=== PATIENT | female | born 1965 | race Caucasian/White ===

== ENCOUNTER 2020-04-03 13:30 | Inpatient (IN) | payer BC ==
--- NOTE | 2020-04-03 13:37 | ED.PDOC ---
History of Present Illness - General Time Seen by Provider: 04/03/20 13:35 Source: patient - History of Present Illness Initial Comments: 54-year-old female with urinate who presents with chief complaint of shortness of breath. Patient reports she was diagnosed with COVID-19 8 days ago in the clinic. She reports her shortness of breath has worsened in the past couple of days. Currently she reports dyspnea as 5/10 severity at rest but becomes severe with minimal exertion and ambulation around the house. She states after walking short distances she has to stop and rest for several minutes to catch her breath. Her PCP is Dr. Chapa in [place]. She was prescribed a Z-Timo several days ago and has been taking it. She was also prescribed ivermectin which she took yesterday. She reports little relief with these therapies. Additionally reports intermittent headaches, intermittent dry cough, decreased appetite. Denies chest pain, fevers, chills, abdominal pain, sore throat, nausea/vomiting/diarrhea, leg swelling. Her is also sick with COVID-19. Denies any history of smoking or cardiac/lung issues. Allergies/Adverse Reactions: Allergies Penicillins Allergy (Verified 04/03/20 13:43) Sulfa Antibiotics Allergy (Verified 04/03/20 13:43) Home Medications: Ambulatory Orders Citalopram Hydrobromide [Citalopram] 20 mg PO DAILY 04/03/20 Estradiol 0.075 mg TD DAILY 04/03/20 Fluticasone Propionate (Nasal) [Flonase Allergy Relief] 50 mcg NA PRN 04/03/20 Furosemide [Lasix] 20 mg PO DAILY 04/03/20 HYDROcodone 10MG/APAP 325MG [[place] 10/325] 1 tab PO Q6H 04/03/20 Hydroxychloroquine Sulfate [Hydroxychloroquine Sulfat] 200 mg PO BID 04/03/20 Lisinopril 20 mg PO DAILY 04/03/20 Meloxicam 15 mg PO DAILY 04/03/20 Montelukast [Singulair] 10 mg PO DAILY 04/03/20 Omeprazole 40 mg PO DAILY 04/03/20 Spironolactone 25 mg PO DAILY 04/03/20 Review of Systems - Review of Systems Review of Systems: 04/03/20 14:30 as per HPI All other Systems: Reviewed and Negative Family Medical History - Family History Mother Family History: Unknown Living Status: Unknown Physical Exam - Physical Exam General Appearance: Alert, Comfortable, No apparent distress, Obese Eye Exam: bilateral normal Ears, Nose, Throat: hearing grossly normal, pharyngeal erythema Neck: full range of motion, supple, normal inspection Respiratory: rales - diffuse BL rales w/o wheezing, good air movement throughout, slightly inc'd WOB at rest but able to speak comfortably in full sentences Cardiovascular/Chest: normal peripheral pulses, no edema, no gallop, no JVD, no murmur, tachycardia Peripheral Pulses: radial,right: 2+, radial,left: 2+ Gastrointestinal/Abdominal: normal bowel sounds, non tender, soft, no organomegaly Back Exam: normal inspection Extremity: normal range of motion, non-tender, normal inspection, no pedal edema, no calf tenderness, normal capillary refill Neurologic: video production intern II-XII nml as tested, no motor/sensory deficits, alert, normal mood/affect, oriented x 3 Skin Exam: normal color, warm/dry Progress - Progress Progress: 04/03/20 14:32 Dyspnea -Appears secondary to COVID-19 pneumonia. Consider also pneumonia, CHF, ACS, PE, other viral infection, asthma, other -Patient noted to have SPO2 95% on room air with slight tachypnea upon arrival. Markedly worsens with minimal exertion. Mild tachycardia but blood pressure stable. -Obtain COVID-19 ED panel -Place PIV, 1 L normal saline bolus, Decadron 6 mg IV, trial of DuoNebs, reassess. Consider admission versus possible BAM treatment and close outpt f/u 04/03/20 16:18 -Patient reassessed numerous times while in the ED. She reported only slight improvement after the DuoNeb's and Decadron treatments. Repeat auscultation revealed slightly improved air movement throughout and still no wheezing. Patient noted to have significant exertional dyspnea and she does have oxygen desaturation to be low to mid 80s with minimal exertion, improves at rest back to 95% room air. Her ED work-up is consistent with COVID-19 pneumonia. Serum WBC is 10,000 with slight left shift and 5 bands. CRP is elevated to 35, D- dimer greater than 5000. CTA of the chest was obtained which revealed no evidence of PE but did reveal bilateral diffuse peripheral groundglass opacities consistent with COVID-19 pneumonia. -The patient was very concerned about going home. I discussed the patient with Jaz Cardozo who accepts for admission for COVID-19 pneumonia with exertional dyspnea and hypoxia. Given the bandemia, there is concern about potential bacterial infection and sepsis. We will draw blood cultures and lactate. Begin remdesivir 200 mg IV. Hospitalist to discern possible antibiotic therapy. Sorin Bray MD Billing #[id number] 04/03/20 13:36 Telemetry STAT 04/03/20 13:45 EKG STAT Oxygen STAT Pulse Ox, Continuous Monitoring STAT 04/03/20 16:16 LACTIC ACID Stat BLOOD CULTURE Stat 04/03/20 16:17 Remdesivir 200 mg Sodium Chloride 0.9% 250Ml [NS 250ml] 250 ml IVPB ONCE 04/04/20 13:45 Oxygen STAT Pulse Ox, Continuous Monitoring STAT 04/05/20 13:45 Pulse Ox, Continuous Monitoring STAT Laboratory Results - last 24 hr 04/03/20 04/03/20 04/03/20 13:55 13:55 13:55 WBC 10.0 RBC 4.62 Hgb 14.2 Hct 40.6 MCV 87.9 MCH 30.8 MCHC 35.1 RDW 13.3 Plt Count 547 H MPV 7.4 Absolute Neuts (auto) Not Reportable Absolute Lymphs (auto) Not Reportable Absolute Monos (auto) Not Reportable Absolute Eos (auto) Not Reportable Neutrophils % Not Reportable Neutrophils % (Manual) 76.0 Lymphocytes % Not Reportable Lymphocytes % (Manual) 8.0 Monocytes % Not Reportable Monocytes % (Manual) 10.0 Eosinophils % Not Reportable Basophils % Not Reportable Band Neutrophils 5.0 H Eosinophils 1.0 Platelet Estimate Increased Normal RBC Morphology 1+aniso PTT (SP) 36.6 H D-Dimer, Quantitative > 5000.0 H* Sodium 130 L Potassium 4.3 Chloride 92 L Carbon Dioxide 25 Anion Gap 17.3 BUN 18 Creatinine 0.88 BUN/Creatinine Ratio 20.5 H Random Glucose 103 Serum Osmolality 263.0 L Calcium 9.1 Magnesium 1.9 Total Bilirubin 0.6 AST 30 ALT 20 Alkaline Phosphatase 68 LD Total 259 H Creatine Kinase 33 Troponin I C-Reactive Protein 35.1 H* B-Natriuretic Peptide 242.0 H* Serum Total Protein 8.7 H Albumin 3.0 L Globulin 5.7 H Albumin/Globulin Ratio 0.5 L Urine Color Urine Appearance Urine pH Ur Specific [place] Urine Protein Urine Glucose (UA) Urine Ketones Urine Blood Urine Nitrite Urine Bilirubin Urine Urobilinogen Ur Leukocyte Esterase Urine RBC Urine WBC Ur Epithelial Cells Urine Bacteria 04/03/20 04/03/20 13:55 14:49 WBC RBC Hgb Hct MCV MCH MCHC RDW Plt Count MPV Absolute Neuts (auto) Absolute Lymphs (auto) Absolute Monos (auto) Absolute Eos (auto) Neutrophils % Neutrophils % (Manual) Lymphocytes % Lymphocytes % (Manual) Monocytes % Monocytes % (Manual) Eosinophils % Basophils % Band Neutrophils Eosinophils Platelet Estimate Normal RBC Morphology PTT (SP) D-Dimer, Quantitative Sodium Potassium Chloride Carbon Dioxide Anion Gap BUN Creatinine BUN/Creatinine Ratio Random Glucose Serum Osmolality Calcium Magnesium Total Bilirubin AST ALT Alkaline Phosphatase LD Total Creatine Kinase Troponin I < 0.02 C-Reactive Protein B-Natriuretic Peptide Serum Total Protein Albumin Globulin Albumin/Globulin Ratio Urine Color Yellow Urine Appearance Clear Urine pH 5.5 Ur Specific [place] >= 1.030 Urine Protein 100 H Urine Glucose (UA) Negative Urine Ketones Trace Urine Blood Negative Urine Nitrite Negative Urine Bilirubin Small H Urine Urobilinogen 1.0 Ur Leukocyte Esterase Negative Urine RBC 0 Urine WBC 0 Ur Epithelial Cells 0 Urine Bacteria 0 - EKG/XRAY/CT EKG: Sinus - Sinus tachycardia, heart rate 105, no ST elevations or Q waves noted, axis normal, intervals normal, no prior EKG for comparison. XRAY: chest - Bilateral hazy interstitial opacifications noted middle and lower lung banuelos consistent with COVID-19 pneumonia per my read Departure - Departure Clinical Impression: Pneumonia due to COVID-19 virus, Hypoxia Time of Disposition: 16:26 Disposition: Admit Patient Condition: Fair Diet: low salt diet Referrals: IESHA FONSECA [Referring] - 1-2 Weeks Home Medications: Ambulatory Orders Citalopram Hydrobromide [Citalopram] 20 mg PO DAILY 04/03/20 Estradiol 0.075 mg TD DAILY 04/03/20 Fluticasone Propionate (Nasal) [Flonase Allergy Relief] 50 mcg NA PRN 04/03/20 Furosemide [Lasix] 20 mg PO DAILY 04/03/20 HYDROcodone 10MG/APAP 325MG [[place] 10/325] 1 tab PO Q6H 04/03/20 Hydroxychloroquine Sulfate [Hydroxychloroquine Sulfat] 200 mg PO BID 04/03/20 Lisinopril 20 mg PO DAILY 04/03/20 Meloxicam 15 mg PO DAILY 04/03/20 Montelukast [Singulair] 10 mg PO DAILY 04/03/20 Omeprazole 40 mg PO DAILY 04/03/20 Spironolactone 25 mg PO DAILY 04/03/20 Decision To Admit - Decistion To Admit Decision to Admit Reason: Admit from ER Decision to Admit Date: 04/03/20 Decision to Admit Time: 16:26
--- NOTE | 2020-04-03 14:01 | RAD ---
EXAMINATION: Chest x-ray one view. INDICATION: Covid positive. Dyspnea. COMPARISON: None TECHNIQUE: Frontal radiograph chest. FINDINGS: The cardiac silhouette is normal in size. Bilateral mid and lower lung zone airspace opacities are present. There is no pneumothorax. IMPRESSION: Bilateral mid and lower lung zone airspace opacities are present which could relate to the provided history of Covid. Continued follow-up recommended Electronically signed by: Allyson Tipton MD 04/03/2020 1:59 PM [facility]
[2020-04-03] MEDS ORDERED: IPRATROPIUM/ALBUTEROL 3 ML VIAL NEB ONE (14:27)
[2020-04-03] MEDS ORDERED: SODIUM CHLORIDE 0.9% 1000ML 1,000 ML IVS ONE (14:27)
[2020-04-03] MEDS ORDERED: DEXAMETHASONE INJ 4 MG/ML VIAL IV ONE (14:27)
--- NOTE | 2020-04-03 16:05 | CT ---
PROCEDURE: CT Angiography Chest With Intravenous Contrast CLINICAL INDICATION: The patient is 54 years old and is Female; dyspnea, COVID-19+, markedly elevated d-dimer MAIN TECHNIQUE: Axial computed tomographic angiography images of the chest with intravenous contrast. Sagittal and coronal reformatted images were created and reviewed. This CT exam was performed using one or more of the following dose reduction techniques: automated exposure control, adjustment of the mA and/or kV according to patient size, and/or use of iterative reconstruction technique. MIP reconstructed images were created and reviewed. RADIATION DOSE: Total exam DLP is 791.7 mGycm. COMPARISON: No relevant prior studies available. FINDINGS: PULMONARY ARTERIES: There is NO evidence of pulmonary artery embolus. The bilateral third generation subsegmental pulmonary artery branches in the lower lobes are not diagnostically evaluated due to motion and infiltrates which obscures these petering vessels. The contrast bolus is well timed for this evaluation. AORTA: The thoracic aorta is within normal limits without aneurysm or dissection. GREAT VESSELS OF AORTIC ARCH: Great vessels are unremarkable in appearance. LUNGS: Non-specific peripheral bilateral rounded ground glass opacities in a predominantly peripheral organizing pneumonia pattern of lung injury/alveolar damage which can be seen with infections (including viral pneumonias), CMV infection, hypersensitivity pneumonitis, BOOP, autoimmune diseases, and toxic/drug reactions. PLEURAL SPACE: No pleural effusions noted. No pneumothorax. HEART: NO pericardial effusion is identified. Heart is mildly enlarged in size. No evidence of RV dysfunction. MEDIASTINUM: There is NO hilar or axillary lymphadenopathy. There is a moderate hiatal hernia identified. THYROID: There is a low density 7 mm nodule in the RIGHT thyroid gland. BONES/JOINTS: No acute fracture. No dislocation. SOFT TISSUES: Unremarkable. LYMPH NODES: There are small lymph nodes in the AP window. LIVER: Hepatic steatosis is identified. No intrahepatic lesions are noted. IMPRESSION: 1. There is NO evidence of pulmonary artery embolus. The bilateral third generation subsegmental pulmonary artery branches in the lower lobes are not diagnostically evaluated due to motion and infiltrates which obscures these petering vessels. 2. Non-specific peripheral bilateral rounded ground glass opacities in a predominantly peripheral organizing pneumonia pattern of lung injury/alveolar damage which can be seen with infections (including viral pneumonias), CMV infection, hypersensitivity pneumonitis, BOOP, autoimmune diseases, and toxic/drug reactions. Electronically signed by: Sin Cruz MD 04/03/2020 4:03 PM [facility]
[2020-04-03] MEDS ORDERED: REMDESIVIR 200 MG in SODIUM CHLORIDE 0.9% 250ML 250 ML IVPB ONE (16:17)
[2020-04-03] MEDS ORDERED: ALBUTEROL INHALER 64 PUFF/8GM INH PRN (22:11)
[2020-04-03] MEDS ORDERED: cefTRIAXone SODIUM 1 GM in SODIUM CHL 0.9% 50ML MIN-BAG+ 50 ML IVPB ONE (22:13)
[2020-04-03] MEDS ORDERED: ONDANSETRON INJ 4 MG/2 ML VIAL IV PRN (22:14)
[2020-04-03] MEDS ORDERED: SODIUM CHLORIDE 0.9% (FLUSH) 10 ML SYG IV PRN (22:14)
[2020-04-03] MEDS ORDERED: IV SET AND CAP CHANGE INJ INJ SCH (22:30)
[2020-04-03] MEDS ORDERED: SODIUM CHLORIDE 0.9% 250ML 250 ML ONE (22:36)
[2020-04-03] MEDS ORDERED: AZITHROMYCIN IV 500 MG VIAL IVPB ONE (22:36)
[2020-04-03] MEDS ORDERED: SODIUM CHL 0.9% 50ML MIN-BAG+ 50 ML IVPB ONE (22:37)
[2020-04-03] MEDS ORDERED: cefTRIAXone SODIUM 1 GM VIAL ONE (22:37)
[2020-04-03] MEDS ORDERED: AZITHROMYCIN IV 500 MG in SODIUM CHLORIDE 0.9% 250ML 250 ML IVPB ONE (23:00)
[2020-04-04] MEDS ORDERED: PANTOPRAZOLE SODIUM IV 40 MG VIAL IV SCH (06:30)
--- NOTE | 2020-04-04 06:33 | RAD ---
EXAM: XR Chest, 1 View CLINICAL HISTORY: covid TECHNIQUE: Frontal view of the chest. COMPARISON: 04/03/2020 FINDINGS: Lungs: Stable multifocal bilateral groundglass and consolidative infiltrates. Stable abnormalities Pleural space: No pneumothorax. No pleural effusion. Heart: Normal cardiac size and configuration. Mediastinum: No abnormality noted. Bones/joints: No osseous destruction or sclerosis noted. IMPRESSION: No acute findings in the chest. Electronically signed by: Fatou Trujillo MD 04/04/2020 6:[address] [facility]
[2020-04-04] MEDS ORDERED: SODIUM CHLORIDE 0.9% 250ML 250 ML ONE (08:14)
[2020-04-04] MEDS ORDERED: REMDESIVIR IV 100 MG VIAL ONE (08:14)
[2020-04-04] MEDS: ALBUTEROL INHALER 64 PUFF/8GM INH SCH ×4 (08:20→20:49)
[2020-04-04] MEDS: REMDESIVIR 100 MG in SODIUM CHLORIDE 0.9% 250ML 250 ML IVPB SCH (09:51)
[2020-04-04] MEDS: BIFIDOBACTERIUM INFANTIS 4 MG CAP PO SCH (09:52)
[2020-04-04] MEDS: SODIUM CHLORIDE 0.9% (FLUSH) 10 ML SYG IV SCH ×2 (09:52→20:40)
[2020-04-04] MEDS: guaiFENesin ER TAB 600 MG TAB PO SCH ×2 (09:52→20:40)
[2020-04-04] MEDS: DEXAMETHASONE INJ 10 MG/ML VIAL IV SCH (09:52)
--- NOTE | 2020-04-04 10:20 | HP ---
SUPERVISING PHYSICIAN: Canelo Arzola MD CHIEF COMPLAINT: Shortness of breath. HISTORY OF PRESENT ILLNESS: This is a 54-year-old female who came to the Emergency Room with increasing shortness of breath. She was diagnosed with COVID-19 approximately 8 days prior through the ER visit and the clinic. She states the shortness of breath has worsened over the past couple of days. She notes that at rest, she would be comfortable, but anytime she would utilize even minimal exertion, her shortness of breath would worsen. She was seen by her primary care physician last week and was put on a Z-Timo and took it without any significant improvement. Additionally, she was given Ivermectin which she took yesterday with little improvement. She also complains of intermittent headaches, dry cough, decreased appetite. In the ER, O2 saturation was 95% on room air and slightly tachypneic upon arrival, however, with minimal exertion once again she would become tachycardic and desaturate into the 80s. Therefore, she was further worked up in the ER with labs and x-rays. Her CBC showed normal white count at 10,000, however, she did have 5% bands. Coagulation studies show elevated D-dimer at greater than 5,000. Chemistry showed CRP 35.1, sodium 130. Troponin was negative. Chest x-ray and CT scan of the chest were done and showed no pulmonary emboli, however, did show patchy infiltrates consistent with COVID pneumonitis. She was referred for admission and placed on Remdesivir and empiric steroids and antibiotics. PAST MEDICAL HISTORY: 1. Hypertension. 2. Rheumatoid arthritis. 3. Gastroesophageal reflux disease. 4. Seasonal allergies. 5. Depression. PAST SURGICAL HISTORY: 1. Hysterectomy. 2. . MEDICATIONS: Please see medication reconciliation list once verified in the computer. ALLERGIES: PENICILLIN, SULFA DRUGS. FAMILY HISTORY: Reviewed and noncontributory. SOCIAL HISTORY: No drinking, no smoking, no illicit drugs. PHYSICAL EXAMINATION: VITAL SIGNS: Blood pressure 148/83, heart rate 65, respiratory rate 24, temperature 97.8, oxygen saturation 93% on room air. GENERAL: Ms. Marte is a 54-year-old female in no active distress. NEUROLOGIC: The patient is alert. LUNGS: A little bit diminished, but otherwise clear to auscultation bilaterally. CARDIOVASCULAR: Regular rate and rhythm. Normal S1, S2. ABDOMEN: Soft. Positive bowel sounds. EXTREMITIES: Lower extremities with no edema. LABORATORY: Labs and films are as discussed in history of present illness. IMPRESSION: 1. COVID-19 pneumonitis. 2. Hypertension. 3. History of rheumatoid arthritis on immunosuppressive medications. 4. Possible co-existing bacterial pneumonia. 5. Hyponatremia. PLAN: The patient will be admitted to the hospital and placed on empiric treatment for COVID pneumonitis. She has been placed on Remdesivir as well as IV steroids with dexamethasone. I have placed her on empiric antibiotic therapy as well. She has been placed bronchodilator therapy and pulmonary toileting. We will resume her home medications once verified in the computer. With the elevated D-dimer greater than 5,000, I am going to go ahead and empirically place her on Eliquis as well. We will do serial labs and x-rays as needed. #[id number] [facility]
[2020-04-04] MEDS ORDERED: FLUTICASONE PROP 0.05% NASAL 16 GM BTTL BNAS SCH (12:00)
[2020-04-04] MEDS: AZITHROMYCIN IV 500 MG in SODIUM CHLORIDE 0.9% 250ML 250 ML IVPB SCH (12:16)
[2020-04-04] MEDS: cefTRIAXone SODIUM 1 GM in SODIUM CHL 0.9% 50ML MIN-BAG+ 50 ML IVPB SCH (12:16)
[2020-04-04] MEDS: HYDROcodone 10MG/APAP 325MG 1 EA TAB PO SCH ×3 (12:17→23:45)
[2020-04-04] MEDS: APIXABAN 5 MG TAB PO SCH ×2 (12:17→20:40)
[2020-04-04] MEDS ORDERED: CITALOPRAM HBR 20 MG TAB ONE (19:31)
[2020-04-04] MEDS: CITALOPRAM HBR 20 MG TAB PO SCH (20:40)
[2020-04-05] MEDS ORDERED: OMEPRAZOLE CAP 20 MG CAP ONE (05:09)
[2020-04-05] MEDS: OMEPRAZOLE CAP 20 MG CAP PO SCH (05:52)
[2020-04-05] MEDS: HYDROcodone 10MG/APAP 325MG 1 EA TAB PO SCH ×3 (05:52→17:31)
[2020-04-05] MEDS ORDERED: PANTOPRAZOLE SODIUM TAB 40 MG PO SCH (06:30)
--- NOTE | 2020-04-05 07:16 | RAD ---
EXAM DESCRIPTION: Chest,1 View 04/05/2020 7:13 AM [facility] CLINICAL HISTORY: 54 years, Female, covid COMPARISON: 04/04/2020 FINDINGS: Single view of the chest was obtained portable. Prior films were compared. The heart is not enlarged. The thoracic aorta is mildly tortuous. Again there is the significant bilateral interstitial and alveolar infiltrates throughout both lung banuelos. External EKG leads within the [id number] limits diagnosis. The rest of the soft tissue and bony structures demonstrate to be unremarkable. IMPRESSION: BILATERAL ALVEOLAR AND INTERSTITIAL INFILTRATES SUSPICIOUS FOR VIRAL- COVID 19 PNEUMONIA Electronically signed by: Cliff Garcia MD 04/05/2020 7:14 AM [facility]
[2020-04-05] MEDS: ALBUTEROL INHALER 64 PUFF/8GM INH SCH ×4 (08:45→21:10)
[2020-04-05] MEDS: MONTELUKAST 10 MG TAB PO SCH (09:08)
[2020-04-05] MEDS: BIFIDOBACTERIUM INFANTIS 4 MG CAP PO SCH (09:08)
[2020-04-05] MEDS: REMDESIVIR 100 MG in SODIUM CHLORIDE 0.9% 250ML 250 ML IVPB SCH (09:08)
[2020-04-05] MEDS: APIXABAN 5 MG TAB PO SCH ×2 (09:08→20:47)
[2020-04-05] MEDS: DEXAMETHASONE INJ 10 MG/ML VIAL IV SCH (09:08)
[2020-04-05] MEDS: LISINOPRIL 10 MG TAB PO SCH (09:09)
[2020-04-05] MEDS: guaiFENesin ER TAB 600 MG TAB PO SCH ×2 (09:09→20:47)
[2020-04-05] MEDS: MELOXICAM 7.5 MG TAB PO SCH (09:09)
[2020-04-05] MEDS: SPIRONOLACTONE 25 MG TAB PO SCH (09:09)
[2020-04-05] MEDS: ESTRADIOL 0.075 MG TD SCH (09:10)
[2020-04-05] MEDS: SODIUM CHLORIDE 0.9% (FLUSH) 10 ML SYG IV SCH ×2 (09:10→20:47)
[2020-04-05] MEDS: cefTRIAXone SODIUM 1 GM in SODIUM CHL 0.9% 50ML MIN-BAG+ 50 ML IVPB SCH (11:41)
[2020-04-05] MEDS: AZITHROMYCIN IV 500 MG in SODIUM CHLORIDE 0.9% 250ML 250 ML IVPB SCH (11:41)
--- NOTE | 2020-04-05 18:17 | PN ---
SUPERVISING PHYSICIAN: Canelo Arzola M.D. DATE: 04/05/20 SUBJECTIVE: The patient feels better today than she did yesterday. She states that her shortness of breath has lessened. OBJECTIVE: VITAL SIGNS: Blood pressure 134/84, heart rate 63, respiratory rate 18, temperature 95.4, oxygen saturation 96% on room air. GENERAL: Ms. Marte is a 54 year-old female in no active distress. NEUROLOGIC: The patient is alert. LUNGS: Clear to auscultation bilaterally. CARDIOVASCULAR: The patient has a regular rate and rhythm. Normal S1 and S2. ABDOMEN: Soft. Positive bowel sounds. EXTREMITIES: Lower extremities have no edema. 2+ pulses. Capillary refill less than 2 seconds. LABORATORY: Reviewed and show an elevated white count today at 15.2, hemoglobin 12.4, hematocrit 36.7, platelet count 564. There are no bands today. D-dimer has dropped to 4670. Chemistry is pretty much unremarkable, although her CRP has improved to 12.4 today. She did have a chest x-ray which does not show any significant change from yesterday. ASSESSMENT: 1. COVID-19 pneumonitis. 2. Hypertension. 3. History of rheumatoid arthritis on immunosuppressant medications. 4. Possible coexisting bacterial pneumonia. 5. Hyponatremia. PLAN: At this point, we will continue to treat the patient with Remdesivir, IV steroids, as well as empiric antibiotics. She is still on bronchodilator therapy and pulmonary toileting. As she continues to not require oxygen at rest and maintains adequate saturations with exertion, she may be able to be discharged in the next 24 to 48 hours. #[id number] [facility]
[2020-04-05] MEDS: CITALOPRAM HBR 20 MG TAB PO SCH (20:47)
[2020-04-06] MEDS: HYDROcodone 10MG/APAP 325MG 1 EA TAB PO SCH ×3 (00:20→11:49)
[2020-04-06 06:00] VITALS: BP 158/91
[2020-04-06] MEDS: OMEPRAZOLE CAP 20 MG CAP PO SCH (06:00)
[2020-04-06] MEDS: REMDESIVIR 100 MG in SODIUM CHLORIDE 0.9% 250ML 250 ML IVPB SCH (08:44)
[2020-04-06] MEDS: BIFIDOBACTERIUM INFANTIS 4 MG CAP PO SCH (08:45)
[2020-04-06] MEDS: MELOXICAM 7.5 MG TAB PO SCH (08:45)
[2020-04-06] MEDS: guaiFENesin ER TAB 600 MG TAB PO SCH (08:46)
[2020-04-06] MEDS: MONTELUKAST 10 MG TAB PO SCH (08:46)
[2020-04-06] MEDS: LISINOPRIL 10 MG TAB PO SCH (08:46)
[2020-04-06] MEDS: APIXABAN 5 MG TAB PO SCH (08:46)
[2020-04-06] MEDS: SPIRONOLACTONE 25 MG TAB PO SCH (08:46)
[2020-04-06] MEDS: DEXAMETHASONE INJ 10 MG/ML VIAL IV SCH (08:46)
[2020-04-06] MEDS: ESTRADIOL 0.075 MG TD SCH (08:47)
[2020-04-06] MEDS: SODIUM CHLORIDE 0.9% (FLUSH) 10 ML SYG IV SCH (08:47)
[2020-04-06] MEDS: ALBUTEROL INHALER 64 PUFF/8GM INH SCH ×2 (09:05→13:06)
[2020-04-06] MEDS: cefTRIAXone SODIUM 1 GM in SODIUM CHL 0.9% 50ML MIN-BAG+ 50 ML IVPB SCH (11:09)
[2020-04-06] MEDS ORDERED: AZITHROMYCIN 250 MG TAB PO ONE ×2 (11:17→11:28)
[2020-04-06] MEDS ORDERED: CEFDINIR 300 MG CAP ONE (11:21)
[2020-04-06] MEDS ORDERED: CEFDINIR 300 MG CAP PO ONE (11:28)
[2020-04-06 12:25] VITALS: TEMP 97.9
[2020-04-06 17:18] VITALS: O2SAT 96
--- NOTE | 2020-04-07 14:08 | DS ---
SUPERVISING PHYSICIAN: Canelo Arzola MD DISCHARGE DIAGNOSES: 1. COVID-19 pneumonitis. 2. Hypertension. 3. History of rheumatoid arthritis on immunosuppressive medications. 4. Possible co-existing bacterial pneumonia. 5. Hyponatremia. 6. Elevated D-dimer. HISTORY OF PRESENT ILLNESS: This is a 54-year-old female patient who came to the Emergency Room with increasing shortness of breath. She was diagnosed with COVID-19 approximately 8 days prior to her Emergency Room visit. She had shortness of breath that worsened several days prior to coming to the Emergency Room. She was comfortable at rest but with any exertion shows shortness of breath would worsen. She was seen by her primary care physician last week and was put on a Z-Timo and took it without any significant improvement. She was also given Ivermectin and again, with little improvement. She also complained of headache, dry cough, decreased appetite. In the Emergency Room, her O2 saturation was 95% and she was slightly tachypneic. However, with minimal exertion she became tachycardic and would desaturate into the 80s. Therefore, she had a further workup in the Emergency Room. Her CBC showed a normal white count but she did have 5% bands. Coagulation studies showed elevated D-dimer at greater than 5,000. Chemistry showed CRP 35.1, sodium 130. Troponin was negative. Chest x-ray and CT scan of the chest were done and showed no pulmonary emboli, however, did show patchy infiltrates consistent with COVID pneumonitis. She was admitted to the hospital and placed on the routine Covid guidelines. HOSPITAL COURSE: The patient was admitted to the hospital and started on Covid guidelines including Remdesivir, azithromycin, Rocephin, Decadron and given aggressive pulmonary hygiene including bronchodilators. Her home medications were started once they were verified. She was placed on Eliquis due to the elevated D-dimer. Her serial labs and x-rays were monitored closely. She slowly improved over the next day and her medications and Covid guidelines were continued. She was weaned off of her oxygen and she maintained her saturations this morning at 95% with exertion. She will be discharged home today in stable condition. LABORATORY: WBCs were 10,000 and went up as high as 15,200 and today are 12,500. Hemoglobin and hematocrit are stable at 12.6 and 36.7. She does have a left shift on her differential. D-dimer was greater than 5,000 on admission and this morning are 4,680. Electrolytes are basically within normal limits. BUN was 20, creatinine 0.67. C-reactive protein on admission was 27 and today is 6.1. LD 215 and has come down to 193. Liver enzymes remained stable. Urinalysis was unremarkable. Preliminary blood cultures showed no growth after 3 days. RADIOLOGY: Chest x-ray showed bilateral alveolar and interstitial infiltrates suspicious for viral Covid-19 pneumonia. DISCHARGE PLAN: The patient will be discharged home ins table condition. She is to resume her pervious diet and increase her activity as tolerated. She is to followup with Eliana Chapa, her primary care physician, within the next one to two weeks. In addition to her routine medications, she will also have Align, Cefdinir, Dexamethasone, Guaifenesin, albuterol and azithromycin. Due to her elevated D-dimer, I have also sent her home on 2 weeks of Eliquis. She has received 2 weeks worth of samples and when she sees her primary care physician, they can decide at that time if she should continue her anticoagulant therapy. It is recommended she had another D-dimer ordered at that time. She is to return to the hospital or followup with Dr. Chapa for any problems or complications. DISCHARGE MEDICATIONS: 1. Estradiol. 2. Singulair. 3. Hydroxychloroquine. 4. Meloxicam. 5. Flonase. 6 Omeprazole. 7. Lisinopril. 8. Citalopram. 9. Spironolactone. 10. Hydrocodone. 11. Align. 12. Cefdinir. 13. Dexamethasone. 14. Eliquis. 15. Guaifenesin. 16. Albuterol. 17. Azithromycin. #[id number] [facility]
== END 2020-04-06 16:00 | disposition home or self-care (01) | DRG 177 ==
LOC: ER 13:30 → OBSVTOIN 16:30 → MS 16:30
PROVIDERS: ADMIT Nurse Practitioner Acute Care; ATTEND Nurse Practitioner Acute Care
PROC: B32T1ZZ Computerized Tomography (CT Scan) of Left Pulmonary Artery using Low Osmolar Contrast (ICD-10-PCS; principal; 2020-04-03)
PROC: B32S1ZZ Computerized Tomography (CT Scan) of Right Pulmonary Artery using Low Osmolar Contrast (ICD-10-PCS; 2020-04-03)
PROC: XW033E5 Introduction of Remdesivir Anti-infective into Peripheral Vein, Percutaneous Approach, New Technology Group 5 (ICD-10-PCS; 2020-04-03)
DX: U07.1 COVID-19 (principal); J12.82 Pneumonia due to coronavirus disease 2019; J15.9 Unspecified bacterial pneumonia; E87.1 Hypo-osmolality and hyponatremia; R09.02 Hypoxemia; I10 Essential (primary) hypertension; M06.9 Rheumatoid arthritis, unspecified; R79.89 Other specified abnormal findings of blood chemistry; F32.9 Major depressive disorder, single episode, unspecified; Z88.0 Allergy status to penicillin; Z88.2 Allergy status to sulfonamides; Z79.1 Long term (current) use of non-steroidal anti-inflammatories (NSAID); Z79.891 Long term (current) use of opiate analgesic; Z79.899 Other long term (current) drug therapy